=== PATIENT | male | born 1990 | race Caucasian/White ===

== ENCOUNTER 2016-07-31 14:17 | Emergency (ER) | payer OTHER ==
[~2016-07-31] VITALS: Ht 175.3 cm; Wt 59.0 kg
[~2016-07-31 14:17] MED LIST: NOHOMEMEDICATIONS; NORCO 5-325 TA1 EACH PO; PENICILLIN VK500 M1 PO
[2016-07-31 14:19] VITALS: BP 147/98
[2016-07-31] MEDS ORDERED: KEFLEX500 MG PO (14:38)
[2016-07-31] MEDS ORDERED: SILVADENE20 GM TP (14:38)
[2016-07-31] MEDS ORDERED: NORCO 5-325 TA1 EACH PO (14:44)
== END 2016-07-31 15:12 | disposition home or self-care (01) ==
LOC: ER 14:17
DX: T23.201A Burn of second degree of right hand, unspecified site, initial encounter (principal); F12.10 Cannabis abuse, uncomplicated; F10.99 Alcohol use, unspecified with unspecified alcohol-induced disorder; X12.XXXA Contact with other hot fluids, initial encounter; Y93.89 Activity, other specified; Y92.89 Other specified places as the place of occurrence of the external cause; Y99.0 Civilian activity done for income or pay

== ENCOUNTER → 2016-08-02 | Outpatient (CLI) | payer OTHER ==
[~2016-08-02] MED LIST changes: +KEFLEX500 MG PO; +SILVADENE20 GM TP
== END ==
LOC: HYPER 06:59
DX: T23.211A Burn of second degree of right thumb (nail), initial encounter (principal); S61.001A Unspecified open wound of right thumb without damage to nail, initial encounter; T31.0 Burns involving less than 10% of body surface; F17.210 Nicotine dependence, cigarettes, uncomplicated; X08.8XXA Exposure to other specified smoke, fire and flames, initial encounter; Y93.89 Activity, other specified; Y92.89 Other specified places as the place of occurrence of the external cause; Y99.8 Other external cause status

== ENCOUNTER → 2016-08-09 | Outpatient (CLI) | payer OTHER | LOC: HYPER 07:12 | DX: S61.401D Unspecified open wound of right hand, subsequent encounter (principal); T23.201D Burn of second degree of right hand, unspecified site, subsequent encounter; F17.210 Nicotine dependence, cigarettes, uncomplicated; T31.0 Burns involving less than 10% of body surface; X08.8XXD Exposure to other specified smoke, fire and flames, subsequent encounter; X58.XXXD Exposure to other specified factors, subsequent encounter ==

== ENCOUNTER → 2016-08-23 | Outpatient (CLI) | payer OTHER | LOC: HYPER 07:04 | DX: T23.211D Burn of second degree of right thumb (nail), subsequent encounter (principal); F17.210 Nicotine dependence, cigarettes, uncomplicated; F15.90 Other stimulant use, unspecified, uncomplicated; Z72.89 Other problems related to lifestyle; X19.XXXD Contact with other heat and hot substances, subsequent encounter; Y99.0 Civilian activity done for income or pay ==

== ENCOUNTER 2017-04-18 00:14 | Emergency (ER) | payer OTHER ==
[~2017-04-18] VITALS: Ht 172.7 cm; Wt 56.7 kg
[2017-04-18] MEDS ORDERED: PENICILLIN VK500 M1 PO (00:24)
[2017-04-18] MEDS ORDERED: NORCO 5-325 TA1 EACH PO (00:24)
[2017-04-18] MEDS ORDERED: TYLENOL EXTRA500 MG PO (00:26)
[2017-04-18] MEDS ORDERED: ADVIL200 M3 PO (00:26)
== END 2017-04-18 00:45 | disposition home or self-care (01) ==
LOC: ER 00:14
DX: K04.7 Periapical abscess without sinus (principal); F17.210 Nicotine dependence, cigarettes, uncomplicated